=== PATIENT | male | born 1945 | race Caucasian/White ===

== ENCOUNTER 2018-07-24 06:12 | Day surgery (SDC) | payer MEDICARE, OTHER ==
[~2018-07-24] VITALS: Ht 172.7 cm; Wt 96.7 kg
[~2018-07-24 06:12] MED LIST: Aspirin EC81 MG PO; CENTRUM SILVER1 EAC4 PO; Vitamin D2000 UNIT PO
--- NOTE | 2018-07-24 09:09 | NUR ---
07/24/18 0909 Rip Dobbs LATE ENTRY RECEIVED REPORT FROM [facility] @ 5409 AND TOOK OVER PATIENT CARE. PATIENT VSS, TOLERATING PO FLUIDS WELL DISCHARGE INSTRUCTIONS REVIEWED WITH PATIENT, NO QUESTIONS AT THIS TIME. NURSE ASSISTED PATIENT WALK OUT TO HIS RIDE HOME.
== END 2018-07-24 08:50 | disposition home or self-care (01) ==
LOC: ORSCSDS 06:12
PROVIDERS: Surgery
PROC: 0DBM8ZX Excision of Descending Colon, Via Natural or Artificial Opening Endoscopic, Diagnostic (ICD-10-PCS; principal; 2018-07-24 08:00)
DX: Z12.11 Encounter for screening for malignant neoplasm of colon (principal); D12.4 Benign neoplasm of descending colon; K57.30 Diverticulosis of large intestine without perforation or abscess without bleeding; Z86.010 Personal history of colon polyps; Z79.82 Long term (current) use of aspirin; Z79.899 Other long term (current) drug therapy
CPT/HCPCS: 88305; J0330; J1980; J2405; J7120

== ENCOUNTER 2019-04-05 12:25 | Inpatient (IN) | payer MEDICARE, OTHER ==
[~2019-04-05] VITALS: Ht 172.7 cm; Wt 96.2 kg
[2019-04-05 12:39] LABS: Source, Urine Catheter
[2019-04-05 12:40] LABS: Calcium, Ionized (POC) 1.12 mmol/L (1.10-1.46); Chloride (POC) 107 mmol/L (98-108); Creatinine (POC) 1.2 mg/dL (0.8-1.3); Glucose (ISTAT POC) 119 mg/dL (70-99); Hemoglobin (POC) 14.6 g/dL (13.5-17.5); Potassium (POC) 3.9 mmol/L (3.5-5.5); Sodium (POC) 138 mmol/L (135-148); Total CO2 (POC) 18 mmol/L (21-32)
[2019-04-05 12:41] LABS: Bilirubin, Urine Neg (Neg); Blood, Urine 5+ (Neg); Glucose Qualitative, Urine Neg (Neg); Ketones, Urine 2+ (Neg); Leukocyte Esterase, Urine 2+ (Neg); Nitrite, Urine Neg (Neg); Protein, Urine 2+ (Neg); Specific Gravity, Urine 1.015 (1.003-1.022); Urobilinogen, Urine NORM (Normal)
[2019-04-05 12:44] LABS: BASOPHILS ABSOLUTE AUTO 0.02 K/mm3 (0.00-0.23); BASOPHILS PERCENT AUTO 0 % (0-2); EOSINOPHILS ABSOLUTE AUTO 0.01 K/mm3 (0.00-0.68); EOSINOPHILS PERCENT AUTO 0 % (0-6); Hematocrit 43.8 % (37.0-53.0); Hemoglobin 14.6 g/dL (13.5-17.5); IMMATURE GRAN ABSOLUTE AUTO 0.02 K/mm3 (0.00-0.10); IMMATURE GRAN PERCENT AUTO 0 % (0-1); LYMPHOCYTES ABSOLUTE AUTO 0.62 K/mm3 (0.84-5.20); LYMPHOCYTES PERCENT AUTO 8 % (21-46); MONOCYTES ABSOLUTE AUTO 0.12 K/mm3 (0.16-1.47); MONOCYTES PERCENT AUTO 2 % (4-13); Mean Corpuscular HGB 29.6 pg (26.0-34.0); Mean Corpuscular HGB Conc 33.3 g/dL (31.5-36.5); Mean Corpuscular Volume 89 fL (80-100); Mean Platelet Volume 10.2 fL (9.1-12.4); NEUTROPHILS ABSOLUTE AUTO 7.48 K/mm3 (1.96-9.15); NEUTROPHILS PERCENT AUTO 91 % (41-73); Platelet Count 147 K/mm3 (150-400); RDW Coefficient Variation 13.4 % (11.7-14.2); RDW Standard Deviation 43.8 fL (35.1-46.3); Red Blood Cell Count 4.94 M/mm3 (4.30-5.90); White Blood Cell Count 8.27 K/mm3 (4.00-11.30)
[2019-04-05 12:48] LABS: Appearance, Urine Hazy (Clear); Color, Urine Yellow (P-Yellow)
[2019-04-05 12:51] LABS: Red Blood Cells, Urine 25-50 /hpf (0-2)
[2019-04-05 12:53] LABS: Bacteria Few /hpf; Squamous Epithelial Cells Rare /hpf (Few)
[2019-04-05 12:54] LABS: Mucus Light (0-Heavy)
[2019-04-05 12:58] LABS: International Normalized Ratio 1.24; Prothrombin Time Results 12.9 Sec (9.7-11.5)
[2019-04-05 13:03] LABS: Alanine Aminotransfer (ALT/SGP 35 U/L (12-78); Albumin, Blood 3.6 g/dL (3.4-5.0); Albumin/Globulin Ratio 1.2 (0.8-1.8); Alk Phos 79 U/L (50-136); Anion Gap 11 mmol/L (6-16); Aspartate Aminotrans (AST/SGOT 23 U/L (12-37); Bilirubin, Total 1.2 mg/dL (0.1-1.0); Blood Urea Nitrogen 24 mg/dL (8-24); Bun/Creatinine Ratio 20.9 (12.0-20.0); CO2, Blood 20 mmol/L (21-32); Calcium, Blood 8.7 mg/dL (8.5-10.1); Chloride, Blood 108 mmol/L (98-108); Creatinine, Blood 1.15 mg/dL (0.60-1.20); Globulin, Blood 2.9 g/dL (2.2-4.0); Glomerular Filtration Rate >60 (60-); Glucose, Blood 115 mg/dL (70-99); Potassium, Blood 3.9 mmol/L (3.5-5.5); Sodium, Blood 139 mmol/L (136-145); Total Protein, Blood 6.5 g/dL (6.4-8.2)
[2019-04-05 13:45] LABS: U Amphetamine Screen Not Detected; U Barbituate Screen Not Detected; U Benzodiazapine Screen Not Detected; U Buprenorphine Screen Not Detected; U Cannabinoids Screen Not Detected; U Cocaine Screen Not Detected; U Methadone Screen Not Detected; U Methamphetamine Screen Not Detected; U Opiates Screen Not Detected; U Oxycodone Screen Not Detected; U Phencyclidine Screen Not Detected; U Propoxyphene Screen Not Detected
[2019-04-05 13:49] LABS: Acetaminophen, Random <2.0 ug/mL (10.0-30.0); Salicylate <1.7 mg/dL (2.8-20.0)
[2019-04-05 14:14] LABS: Influenza A Negative (NEGATIVE); Influenza B Negative (NEGATIVE)
[2019-04-05 15:21] LABS: Base Excess Venous -3.3 mmol/L; Bicarbonate Venous 22.7 mmol/L (24.0-30.0); PCO2 Venous 29.7 mmHg (38-42); PO2 Venous 102 mmHg (38-42); pH Blood Venous 7.45 (7.34-7.37)
--- NOTE | 2019-04-05 16:43 | NUR ---
PT ARRIVED AT APPROXIMATELY 1600. PT ALERT AND ORIENTED. ABLE TO TRANSFER HIMSELF WITHOUT ASSISTANCE. BP LOW, FLUIDS RUNNING. PT DENIES DIZZINESS. WILL CONTINUE TO MONITOR.
--- NOTE | 2019-04-05 17:18 | NUR ---
BP, LACTIC ACID DR. VILLALBA NOTIFIED OF CRITICAL HIGH LACTIC ACID OF 2.7. IT IS TRENDING DOWN FROM PREVIOUS RESULT. ORDER PLACED FOR FOLLOW-UP LACTIC IN [address] VILLALBA ALSO NOTIFIED OF SBP <100. PT IS ASYMTOMATIC, WILL CONTINUE TO MONITOR.
--- NOTE | 2019-04-05 18:02 | NUR ---
SHIFT SUMMARY PT HAS BEEN ALERT AND ORIENTED X4 SINCE ARRIVAL TO THE UNIT. VSS, EXCEPT FOR DECREASE IN BP; PT IS ASYMPTOMATIC. LACTIC ACID REMAINS CRITICAL BUT IS TRENDING DOWN. PT REPORTS HE FEELS BETTER SINCE ARRIVING AT THE HOSPITAL. PT IS A SBA WHEN OOB. WILL MONITOR UNTIL REPORT TO ONCOMING RN.
--- NOTE | 2019-04-06 02:52 | NUR ---
CRITICAL VALUE I WAS ALERTED BY LAB THAT THE PATIENT HAD POSITIVE BLOOD CULTURED INDICATING THAT HE HAD GRAM NEGATIVE BACILUS. TALKED TO THE CHARGE NURSE TO NOTIFY OF RESULTS. SHE SUGGESTED TO CALL PHARMACY TO SEE IF THE ANTIBIOTICS HE IS ALREADY ON IS SUFFICIENT COVERAGE FOR THE INFECTION. I CALLED THE PHARMACIST AND LET HIM KNOW, HE SAID THAT HE WOULD CALL BACK.
--- NOTE | 2019-04-06 04:18 | NUR ---
PHYSICIAN COMMUNICATION AFTER SPEAKING WITH THE PHARMACIST I CALLED THE [facility] [employer] OPERATOR PHYSICIAN TO LET HIM KNOW ABOUT THE PATIENT'S GRAM NEGATIVE BACILUS BLOOD CULTURE RESULT. I ALSO REPORTED THAT THE PATIENT HAS BEEN EXPERIENCING A FEVER OF 100.8 FOR WHICH TYLENOL ONLY LOWERED IT TO 100.4 AFTER AN HOUR. HE DID NOT WANT TO PURSUE ADDITIONAL PHARMACUTICAL TREATMENT AND SAID TO APPLY COOL WASCHLOTHS TO PATIENT'S FOREHEAD AND NECK.
[2019-04-06 04:54] LABS: BASOPHILS ABSOLUTE AUTO 0.03 K/mm3 (0.00-0.23); BASOPHILS PERCENT AUTO 0 % (0-2); EOSINOPHILS ABSOLUTE AUTO 0.01 K/mm3 (0.00-0.68); EOSINOPHILS PERCENT AUTO 0 % (0-6); Hematocrit 40.2 % (37.0-53.0); Hemoglobin 13.6 g/dL (13.5-17.5); IMMATURE GRAN ABSOLUTE AUTO 0.11 K/mm3 (0.00-0.10); IMMATURE GRAN PERCENT AUTO 1 % (0-1); LYMPHOCYTES ABSOLUTE AUTO 0.45 K/mm3 (0.84-5.20); LYMPHOCYTES PERCENT AUTO 3 % (21-46); MONOCYTES ABSOLUTE AUTO 0.72 K/mm3 (0.16-1.47); MONOCYTES PERCENT AUTO 5 % (4-13); Mean Corpuscular HGB Conc 33.8 g/dL (31.5-36.5); Mean Corpuscular Volume 89 fL (80-100); Mean Platelet Volume 10.9 fL (9.1-12.4); NEUTROPHILS ABSOLUTE AUTO 14.43 K/mm3 (1.96-9.15); NEUTROPHILS PERCENT AUTO 92 % (41-73); Platelet Count 134 K/mm3 (150-400); RDW Coefficient Variation 13.6 % (11.7-14.2); RDW Standard Deviation 43.9 fL (35.1-46.3); Red Blood Cell Count 4.53 M/mm3 (4.30-5.90); White Blood Cell Count 15.75 K/mm3 (4.00-11.30)
--- NOTE | 2019-04-06 04:55 | NUR ---
I RECEIVED A NOTIFICATION FROM THE LAB THAT A SECOND BLOOD CULTURE HAD COME BACK POSITIVE FOR GRAM NEGATIVE BACILUS. UPDATED CHARGE NURSE ABOUT THE RESULT.
[2019-04-06 05:15] LABS: Anion Gap 7 mmol/L (6-16); Blood Urea Nitrogen 19 mg/dL (8-24); Bun/Creatinine Ratio 19.4 (12.0-20.0); CO2, Blood 24 mmol/L (21-32); Calcium, Blood 8.2 mg/dL (8.5-10.1); Chloride, Blood 109 mmol/L (98-108); Creatinine, Blood 0.98 mg/dL (0.60-1.20); Glomerular Filtration Rate >60 (60-); Glucose, Blood 108 mg/dL (70-99); Potassium, Blood 3.8 mmol/L (3.5-5.5); Sodium, Blood 140 mmol/L (136-145)
--- NOTE | 2019-04-06 06:05 | NUR ---
SHIFT SUMMARY PATIENT WAS VERY PLEASANT OVERNIGHT. AT TIMES CONFUSED ABOUT THE CONCEPT OF HAVING A CATHETER IN PLACE. HE HAS HAD A LOW GRADE TEMPERATURE ALL NIGHT FOR WHICH PRN TYLENOL WAS ADMINISTERED. HE HAD BLOOD CULTURES COME BACK POSITIVE FOR GRAM NEGATIVE BACILUS FOR WHICH THE TRIAGE REGISTER NURSE PHYSICIAN AND PHARMACIST WERE NOTIFIED. THE CURRENT PLAN IS TO CONTINUE WITH HIS CURRENT COVERAGE OF ROCEPHIN BID. HIS TELE SHOWES HIM TO BE RUNNING AT SINUS RHYTHM. IV IN HIS LEFT ARM IS PATENT AND INFUSING WITH NORMAL SALINE AT 100 MLS AN HOUR. BED IN LOWEST POSITION WITH WHEELS LOCKED AND ALARM ON. CALL LIGHT WITHIN REACH. REPORT GIVEN TO ONCOMING RN.
--- NOTE | 2019-04-06 11:35 | NUR ---
Echocardiogram completed.
--- NOTE | 2019-04-06 15:23 | NUR ---
PT IS INCREASINGLY CONFUSED THE DAY GOES ON. HE HAS PULLED OUT 2 IVS. THE BED ALARM IS ON BUT HE CONTINUES TO GET UP WITHOUT CALLING FOR HELP AND DOES NOT UNDERSTAND INSTRUCTIONS TO SIT IN BED. PT ALSO HAS A FEVER OF 101.9. DR VILLALBA WAS NOTIFIED AND GAVE ORDERS TO GIVE HIS PRN TYLENOL FOR THE FEVER AND CONTINUE WITH BED ALARM AND TO PLACE A ERLINDA VEST FOR SAFETY IF NEEDED. CHARGE NURSE IS AWARE. PT IS CURRENTLY RESTING IN BED.
--- NOTE | 2019-04-06 16:44 | NUR ---
SHIFT SUMMARY: PT HAS BEEN ALERT AND ORIENTED TO HIMSELF, AND SITUATION AT TIMES. HE CAN REPORT HIS AND AT FIRST APPEARS TO BE ORIENTED X 4 BUT HE HAS BEEN INCREASINGLY CONFUSED THROUGHOUT THE DAY. HE NEEDS CONSTANT REMINDERS OF WHERE HE IS AND THAT HE NEEDS TO CALL FOR HELP WITH CALL LIGHT BEFORE GETTING UP OUT OF BED SO THAT HE DOESNT FALL. HE IS CONFUSED ABOUT WHAT HIS TEL MONITOR IS AND WHY IT IS ATTACHED TO HIM. THIS MORNING HE PULLED ON HIS CORDERO AND WHEN DR VILLALBA ROUNDED SHE GAVE ORDERS TO DC THE CORDERO, HE WAS ABLE TO VOID ON HIS OWN WITHIN THE HOUR AND IS AWARE OF WHEN HE NEEDS TO EMPTY HIS BLADDER. HE HAD A FEVER THIS AFTERNOON AND TYLENOL WAS GIVEN ORDERED AND IT WAS EFFECTIVE. HE CONTINUES ON IV FLUIDS AND ABO EVEN THOUGH IT HAS BEEN A CHALLENGE SINCE HE HAS PULLED OUT 2 IV LINES. HE NOW HAS A 3RD LINE AND IT IS COVERED AND HE WAS REMINDED OF HOW IMPORTANT THE LINE SO HE CAN RECEIVE HIS ABO. ERLINDA VEST REMAINS IN PLACE FOR SAFETY PER DR VILLALBA. PT HAS HIS CALL LIGHT IN REACH AND IS IN CLEAR SITE FOR FREQUENT MONITORING. THE BED ALARM IS ALSO ON.BED IS IN LOWEST POSITION AND LIGHTS WERE DIMMED SO PT CAN REST. HE IS CURRENTLY WATCHING TV.
--- NOTE | 2019-04-06 20:50 | NUR ---
CORDERO CATHETER PLACED TONIGHT. PATIENT GOT BACK FROM CT STILL COMPLAINING OF ALOT OF ABDOMINAL PAIN AND DISCOMFORT. BP WAS ELEVATED, AND ABDOMIN IS TENDER TO THE TOUCH. UNABLE TO VOID TODAY, HAD PYRIDINE OPERATOR BLADDER SCAN WHICH WAS 900CC OF RETENSION NOTED. CALLED MD GOT AN ORDER TO PLACE CATHETER FOR RETENSION AND OBSTRUCTION. ALSO WILL START ON FLOMAX PER SARAHI LICEA. NEW 14 F CATHETER WAS PLACED WITH NO DIFFICULTIES USING STERILE TECHNIQUE. IMMEDIATELY GOT URINE RETURN OF 1000ML CLEAR. PATIENT REPORTED IMMEDIATE RELEIVE OF DISCOMFORT AND PAIN OF THE ABDOMIN.
--- NOTE | 2019-04-06 20:58 | NUR ---
PATIENT RESTING IN ROOM, STATES HE IS DOING FINE. POSI VEST IN PLACE, RESTRAINT IS CHECKED, CIRCULATION CHECKED. DENIES ANY NEEDS AT THIS TIME. USED CALL LIGHT APPROPRIATLY, SCD'S PLACED ON AND PATIENT COVERED UP. ASSESSMENT COMPLETED, CALL LIGHT IN REACH.
--- NOTE | 2019-04-07 05:33 | NUR ---
SHIFT SUMMARY: 73 Y/O MALE ADMITTED FOR SEPSIS FROM UTI WITH AMS. PATIENT WAS PLACED IN POSI VEST YESTERDAY MID DAY. THROUGHOUT THE NIGHT THE PATIENT HAS BECOME MORE CLEAR AND ABLE TO USE THE CALL LIGHT APPROPRIATLY. HE WAS REMOVED OUT OF THE POSI AROUND 0320, AND PLACED ON BED ALARM. NO ATTEMPTS WERE MADE TO GET OUT OF BED AFTER RESTRAINTS WERE REMOVED. IV REMAINED PATENT AND INFUSED FLUIDS. MEDS WERE GIVEN PER EMAR. CALL LIGHT REMAINED IN REACH. WILL REPORT TO DAY SHIFT.
[2019-04-07 08:23] LABS: BASOPHILS ABSOLUTE AUTO 0.01 K/mm3 (0.00-0.23); BASOPHILS PERCENT AUTO 0 % (0-2); EOSINOPHILS PERCENT AUTO 0 % (0-6); Hematocrit 39.5 % (37.0-53.0); Hemoglobin 13.5 g/dL (13.5-17.5); IMMATURE GRAN ABSOLUTE AUTO 0.06 K/mm3 (0.00-0.10); IMMATURE GRAN PERCENT AUTO 1 % (0-1); LYMPHOCYTES ABSOLUTE AUTO 0.53 K/mm3 (0.84-5.20); LYMPHOCYTES PERCENT AUTO 5 % (21-46); MONOCYTES ABSOLUTE AUTO 0.84 K/mm3 (0.16-1.47); MONOCYTES PERCENT AUTO 8 % (4-13); Mean Corpuscular HGB 30.6 pg (26.0-34.0); Mean Corpuscular HGB Conc 34.2 g/dL (31.5-36.5); Mean Corpuscular Volume 90 fL (80-100); Mean Platelet Volume 10.7 fL (9.1-12.4); NEUTROPHILS ABSOLUTE AUTO 8.96 K/mm3 (1.96-9.15); NEUTROPHILS PERCENT AUTO 86 % (41-73); Platelet Count 133 K/mm3 (150-400); RDW Coefficient Variation 13.5 % (11.7-14.2); RDW Standard Deviation 44.5 fL (35.1-46.3); Red Blood Cell Count 4.41 M/mm3 (4.30-5.90)
[2019-04-07 08:38] LABS: Anion Gap 7 mmol/L (6-16); Blood Urea Nitrogen 15 mg/dL (8-24); Bun/Creatinine Ratio 15.5 (12.0-20.0); CO2, Blood 24 mmol/L (21-32); Calcium, Blood 7.7 mg/dL (8.5-10.1); Chloride, Blood 108 mmol/L (98-108); Creatinine, Blood 0.97 mg/dL (0.60-1.20); Glomerular Filtration Rate >60 (60-); Glucose, Blood 115 mg/dL (70-99); Potassium, Blood 3.4 mmol/L (3.5-5.5); Sodium, Blood 139 mmol/L (136-145)
--- NOTE | 2019-04-07 15:49 | NUR ---
SHIFT SUMMARY: PT HAS BEEN ALERT AND ORIENTED TO HIMSELF,,PLACE AND FAMILY BUT STILL CONFUSED. HIS IV REMAINS IN PLACE AND HE HAS NOT ATTEMPTED TO PULL IT OUT ALTHOUGH HE IS STILL CONFUSED ABOUT WHAT IT IS AND WHY ITS THERE. EDUCATION WAS COMPLETED WITH HIM AND HIS ABOUT THE IV ABO FOR HIS INFECTION AND THEY BOTH VERBALIZED AN UNDERSTANDING. TELE REMAINS ON AND PER SIGNAL WORKER IS AT [place]. PT WAS ASSISTED BY DIRECTOR DECISION SUPPORT TO TAKE A SHOWER TODAY AND HAS BEEN UP TO A RECLINER EVER SINCE. THE CHAIR ALARM IS ON AND HE HAS ALSO BEEN USING HIS CALL LIGHT FOR HELP. PT HAS A CT ORDERED FOR THIS JOHNATHAN. PT IS RESTING IN HIS CHAIR WITH HIS CALL LIGHT IN REACH WITH FREQUENT NURSE ROUNDING.
--- NOTE | 2019-04-07 20:20 | NUR ---
PATIENT ASSISTED TO THE BED, HE WAS SITTING UP IN HIS CHAIR MOST OF THE DAY. REPORTS ABDOMINAL PAIN AND DISCOMFORT THAT STARTED TODAY. HE HAD DRANK HIS CONTRAST ALREADY AND IS AWAITING FOR IMAGING TO SHOW UP. ABDOMIN IS DISTENDED AND TENDER TO THE TOUCH. IMAGING CALLED WHILE IN THE ROOM THEY ARE ON THEIR WAY TO GET HIM. IV SL AT THIS TIME. LUNG SOUNDS ARE CLEAR, REPORTS NO CONSTIPATION. STATES HE HAS NOT BEEN ABLE TO VOID ALL DAY EXCEPT LITTLE AMOUNTS HERE AND THERE. UNABLE TO DO BLADDER SCAN CT SHOWED UP AND GOT THE PATIENT WILL ASSESS WHEN HE GETS BACK TO THE ROOM.
--- NOTE | 2019-04-07 22:59 | NUR ---
PATIENT RESTING COMFORTABLY IN THE ROOM WITH NO SIGNS OF DISTRESS. AWAKEN EASILY WITH VERBAL STIMULI. ADMINISTERED FLOMAX PER ORDERS. CATHETER PATENT AND DRAINING. STATES NO DISCOMFORT OF THE ABDOMIN, THAT HE FEELS ALOT BETTER. EDUCATED ON BLADDER TRAINING AND FLOMAX HOW IT WILL HELP. CALL LIGHT IN REACH.
[2019-04-08 04:33] LABS: BASOPHILS ABSOLUTE AUTO 0.02 K/mm3 (0.00-0.23); BASOPHILS PERCENT AUTO 0 % (0-2); EOSINOPHILS ABSOLUTE AUTO 0.03 K/mm3 (0.00-0.68); EOSINOPHILS PERCENT AUTO 0 % (0-6); Hematocrit 38.4 % (37.0-53.0); IMMATURE GRAN ABSOLUTE AUTO 0.05 K/mm3 (0.00-0.10); IMMATURE GRAN PERCENT AUTO 1 % (0-1); LYMPHOCYTES ABSOLUTE AUTO 0.64 K/mm3 (0.84-5.20); LYMPHOCYTES PERCENT AUTO 6 % (21-46); MONOCYTES ABSOLUTE AUTO 0.89 K/mm3 (0.16-1.47); MONOCYTES PERCENT AUTO 8 % (4-13); Mean Corpuscular HGB 29.5 pg (26.0-34.0); Mean Corpuscular HGB Conc 33.9 g/dL (31.5-36.5); Mean Corpuscular Volume 87 fL (80-100); Mean Platelet Volume 10.4 fL (9.1-12.4); NEUTROPHILS PERCENT AUTO 85 % (41-73); Platelet Count 152 K/mm3 (150-400); RDW Coefficient Variation 13.7 % (11.7-14.2); RDW Standard Deviation 43.8 fL (35.1-46.3); Red Blood Cell Count 4.41 M/mm3 (4.30-5.90); White Blood Cell Count 10.73 K/mm3 (4.00-11.30)
[2019-04-08 04:48] LABS: Anion Gap 7 mmol/L (6-16); Blood Urea Nitrogen 12 mg/dL (8-24); Bun/Creatinine Ratio 12.8 (12.0-20.0); CO2, Blood 24 mmol/L (21-32); Calcium, Blood 7.7 mg/dL (8.5-10.1); Chloride, Blood 109 mmol/L (98-108); Creatinine, Blood 0.94 mg/dL (0.60-1.20); Glomerular Filtration Rate >60 (60-); Glucose, Blood 113 mg/dL (70-99); Potassium, Blood 3.5 mmol/L (3.5-5.5); Sodium, Blood 140 mmol/L (136-145)
--- NOTE | 2019-04-08 05:13 | NUR ---
SHIFT SUMMARY: 73 Y/O MALE ADMITTED FOR SEPSIS R/T UTI. CT SCAN COMPLETED LAST NIGHT. PT REPORTED INCREASE IN ABDOMINAL PAIN WHEN HE RETURNED AT START OF SHIFT. NOTED UNABLE TO VOID, BLADDER SCAN SHOWED 900ML. MD CALLED AND ORDER TO PLACE CATHTER OBTAINED. PLACED 14F CORDERO WITH 1000ML RETURN. THIS RELEIVED ABDOMINAL PAIN AND DISCOMFORT. FLOMAX WAS STARTED. IV INFUSED WITH NO PROBLEMS ALL NIGHT. PATIENT REMAINED APPROPRIATE AND USING CALL LIGHT. NO OTHE CHANGES TO NOTE. VS STABLE. WILL REPORT OFF TO DAY SHIFT.
--- NOTE | 2019-04-08 19:19 | NUR ---
END OF SHIFT SUMMARY: PATIENT DENIED PAIN THROUGHOUT THE SHIFT. PATIENT IS ALERT AND ORIENTED, BUT REQUIRES REMINDERS. PATIENT WILL ALSO RELAY THE SAME INFORMATION TO STAFF MULTIPLE TIMES. PATIENT CALLED APPORPRIATELY AND FOLLOWED DIRECTIONS. PATIENT STEADY ON FEET. DENIED DIZZINESS AT REST OR WITH MOVEMENT. PATIENT HR UP TO 120S AT ONE POINT PER PCU TECH. PATIENT REPORTED HE HAD BEEN UP TO THE BATHROOM. AFTER REST, PATIENT HR RETURNED TO HIGH 90S. PATIENT REPORTS FEELING BETTER. URINE OUTPUT REMAINS CLEAR YELLOW. PROVIDED PATIENT AND HIS WITH EDUCATION REGARDING CURRENT DIAGNOSES AND NEW MEDICATIONS. PATIENT CONTINUES TO REPORT A DIMINISHED APPETITE AND DENIED NAUSEA OR ABD DISCOMFORT.
--- NOTE | 2019-04-08 21:27 | NUR ---
PATIENT FINALLY WOKE UP, HE WAS SLEEPING WHEN ARRIVED ON TO SHIFT. PATIENT ALERT AND ORIENTED TO SELF WITH MILD CONFUSION. ABLE TO STATE PLACE BUT FOREGETS TIME AND SITUATION. NEEDS REMINDERS. ASSESSMENT COMPLETED SEE CHART. MEDICATIONS GIVEN, IV ANTIBOTIC HUNG. CATHETER PATENT AND DRAINING. CALL LIGHT IN REACH WILL CONTINUE TO MONITOR.
--- NOTE | 2019-04-09 06:13 | NUR ---
SHIFT SUMMARY: 73 Y/O MALE ADMITTED FOR SEPSIS OF UTI. VS HAVE BEEN STABLE. PATIENT HAD A FEW PERIODS OF CONFUSION. HE CONTINUED TO TRY AND CALL HIS BUT SHE WAS NOT ANSWERING, THINKING IT WAS MORNING TIME AND IT WAS MIDNIGHT. HE DID NOT NOTICE THE TIME. EASILY REORIENTED. CATHETER REMAINED PATENT, DRAINING CLEAR YELLOW URINE. IV ANTIBOTIC INFUSED THEN HE WAS SL. NO ACUTE CHANGES OCCURRED THIS SHIFT. WILL REPORT TO DAY SHIFT.
[2019-04-09] MEDS ORDERED: Florastor250 MG PO (11:16)
[2019-04-09] MEDS ORDERED: ACET325 PO (11:16)
[2019-04-09] MEDS ORDERED: CIPR500 PO (11:17)
[2019-04-09] MEDS ORDERED: TAMS.4ER PO (11:17)
--- NOTE | 2019-04-09 13:10 | NUR ---
PT DISCHARGED TO HOME WITH SPOUSE. PT ALERT AND ORIENTED THROUGHOUT THIS SHIFT. PT INDEPENDENT IN ROOM. PT AND SPOUSE EDUCATED ON CORDERO CATHETER CARE AND DRAINAGE. UROLOGY WILL CALL PATIENT FOR FOLLOW-UP APPOINTMENT. PT AND SPOUSE PROVIDED WITH DISCHARGE EDUCATION AND DISCHARGE MEDICATION EDUCATION. PT AND SPOUSE VERBALIZED UNDERSTANDING OF EDUCATION. IV'S REMOVED PRIOR TO PT DISCHARGE. PT BELONGINGS WITH PATIENT UPON DISCHARGE. PT TO VEHICLE VIA WHEELCHAIR.
== END 2019-04-09 13:06 | disposition home or self-care (01) | DRG 871 ==
LOC: ER 12:25 → MEDS 14:45
PROVIDERS: Emergency Medicine; ADMIT Internal Medicine
DX: A41.50 Gram-negative sepsis, unspecified (principal); G93.41 Metabolic encephalopathy; N30.00 Acute cystitis without hematuria; N10 Acute pyelonephritis; N40.1 Benign prostatic hyperplasia with lower urinary tract symptoms; R65.20 Severe sepsis without septic shock; R33.8 Other retention of urine; Z79.82 Long term (current) use of aspirin
CPT/HCPCS: 36415; 51702; 70450; 71046; 74177; 80047; 80048; 80053; 81001; 82140; 82550; 82803; 83605; 84443; 85014; 85025; 85610; 85651; 85730; 86140; 87040; 87077; 87086; 87186; 87804; 93005; 93010; 93306; 96361-59; 96365-59; 99285-25; A9270; G0103; G0480; J0696; J1650; J1956; J7030; J7120; Q9967

== ENCOUNTER → 2020-01-11 | Outpatient (CLI) | payer MEDICARE, OTHER ==
[~2020-01-11] MED LIST changes: +ACET325 PO; +CIPR500 PO; +Florastor250 MG PO; +TAMS.4ER PO
== END ==
LOC: LAB SHORT 14:21 → LAB 14:21
DX: L82.1 Other seborrheic keratosis (principal)
CPT/HCPCS: 88305

== ENCOUNTER 2021-11-16 09:53 | Emergency (ER) | payer MEDICARE, OTHER ==
[~2021-11-16] VITALS: Ht 172.7 cm; Wt 97.5 kg
[2021-11-16] MEDS ORDERED: VITAMIN B-12500 MCG SL (10:23)
[2021-11-16 10:54] LABS: BASOPHILS ABSOLUTE AUTO 0.03 K/mm3 (0.00-0.23); BASOPHILS PERCENT AUTO 0 % (0-2); EOSINOPHILS ABSOLUTE AUTO 0.07 K/mm3 (0.00-0.68); EOSINOPHILS PERCENT AUTO 1 % (0-6); Hematocrit 48.4 % (37.0-53.0); Hemoglobin 16.5 g/dL (13.5-17.5); IMMATURE GRAN ABSOLUTE AUTO 0.02 K/mm3 (0.00-0.10); IMMATURE GRAN PERCENT AUTO 0 % (0-1); LYMPHOCYTES ABSOLUTE AUTO 1.37 K/mm3 (0.84-5.20); LYMPHOCYTES PERCENT AUTO 16 % (21-46); MONOCYTES ABSOLUTE AUTO 0.46 K/mm3 (0.16-1.47); MONOCYTES PERCENT AUTO 6 % (4-13); Mean Corpuscular HGB 29.8 pg (26.0-34.0); Mean Corpuscular HGB Conc 34.1 g/dL (31.5-36.5); Mean Corpuscular Volume 88 fL (80-100); Mean Platelet Volume 9.8 fL (9.1-12.4); NEUTROPHILS ABSOLUTE AUTO 6.39 K/mm3 (1.96-9.15); NEUTROPHILS PERCENT AUTO 77 % (41-73); Platelet Count 222 K/mm3 (150-400); Red Blood Cell Count 5.53 M/mm3 (4.30-5.90); White Blood Cell Count 8.34 K/mm3 (4.00-11.30)
[2021-11-16 11:17] LABS: Albumin/Globulin Ratio 1.4 (0.8-1.8); Bilirubin, Total 0.9 mg/dL (0.1-1.0); Bun/Creatinine Ratio 24.2 (12.0-20.0); Calcium, Blood 9.5 mg/dL (8.5-10.1); Creatinine, Blood 0.87 mg/dL (0.60-1.20); Globulin, Blood 2.9 g/dL (2.2-4.0); Potassium, Blood 3.8 mmol/L (3.5-5.5); Total Protein, Blood 6.9 g/dL (6.4-8.2)
[2021-11-16 11:38] LABS: Source, Urine Clean Catch
[2021-11-16 11:42] LABS: Appearance, Urine Clear (Clear); Bilirubin, Urine Neg (Neg); Blood, Urine 1+ (Neg); Color, Urine Yellow (P-Yellow); Glucose Qualitative, Urine Neg (Neg); Ketones, Urine Neg (Neg); Leukocyte Esterase, Urine Neg (Neg); Nitrite, Urine Neg (Neg); Protein, Urine Neg (Neg); Urobilinogen, Urine NORM (Normal)
[2021-11-16 11:55] LABS: Bacteria Many /hpf; Red Blood Cells, Urine 0-2 /hpf (0-2); Squamous Epithelial Cells Rare /hpf (Few); White Blood Cells, Urine Not Seen /hpf (0-5)
== END 2021-11-16 12:39 | disposition home or self-care (01) ==
LOC: ER 09:53
PROVIDERS: Emergency Medicine
DX: R41.3 Other amnesia (principal); Z79.899 Other long term (current) drug therapy
CPT/HCPCS: 36415; 70450; 71045; 80053; 81001; 85025

== ENCOUNTER 2023-07-11 20:20 | Emergency (ER) | payer MEDICARE, OTHER ==
[~2023-07-11] VITALS: Ht 165.1 cm; Wt 72.6 kg
[~2023-07-11 20:20] MED LIST changes: +VITAMIN B-12500 MCG SL
[2023-07-11 20:23] VITALS: BP 180/93
[2023-07-11 20:48] LABS: BASOPHILS ABSOLUTE AUTO 0.06 K/mm3 (0.00-0.23); BASOPHILS PERCENT AUTO 1 % (0-2); EOSINOPHILS ABSOLUTE AUTO 0.22 K/mm3 (0.00-0.68); EOSINOPHILS PERCENT AUTO 2 % (0-6); Hematocrit 47.9 % (37.0-53.0); Hemoglobin 16.1 g/dL (13.5-17.5); IMMATURE GRAN ABSOLUTE AUTO 0.03 K/mm3 (0.00-0.10); IMMATURE GRAN PERCENT AUTO 0 % (0-1); LYMPHOCYTES ABSOLUTE AUTO 2.58 K/mm3 (0.84-5.20); LYMPHOCYTES PERCENT AUTO 27 % (21-46); MONOCYTES PERCENT AUTO 5 % (4-13); Mean Corpuscular HGB 29.6 pg (26.0-34.0); Mean Corpuscular HGB Conc 33.6 g/dL (31.5-36.5); Mean Corpuscular Volume 88 fL (80-100); Mean Platelet Volume 9.5 fL (9.1-12.4); NEUTROPHILS ABSOLUTE AUTO 6.03 K/mm3 (1.96-9.15); NEUTROPHILS PERCENT AUTO 64 % (41-73); Platelet Count 240 K/mm3 (150-400); RDW Coefficient Variation 13.6 % (11.7-14.2); RDW Standard Deviation 43.9 fL (35.1-46.3); Red Blood Cell Count 5.44 M/mm3 (4.30-5.90); White Blood Cell Count 9.42 K/mm3 (4.00-11.30)
[2023-07-11 21:16] LABS: Albumin, Blood 4.3 g/dL (3.4-5.0); Albumin/Globulin Ratio 1.5 (0.8-1.8); Bilirubin, Total 0.5 mg/dL (0.1-1.0); Bun/Creatinine Ratio 26.1 (12.0-20.0); Calcium, Blood 9.3 mg/dL (8.5-10.1); Creatinine, Blood 0.92 mg/dL (0.60-1.20); Globulin, Blood 2.9 g/dL (2.2-4.0); Magnesium, Blood 2.4 mg/dL (1.6-2.4); Potassium, Blood 3.6 mmol/L (3.5-5.5); Total Protein, Blood 7.2 g/dL (6.4-8.2)
[2023-07-11 21:35] LABS: Source, Urine Clean Catch
[2023-07-11 21:37] LABS: Bilirubin, Urine Neg (Neg); Blood, Urine 5+ (Neg); Glucose Qualitative, Urine Neg (Neg); Ketones, Urine 1+ (Neg); Leukocyte Esterase, Urine 1+ (Neg); Nitrite, Urine Neg (Neg); Protein, Urine 2+ (Neg); Specific Gravity, Urine 1.015 (1.003-1.022); Urobilinogen, Urine 1+ (Normal); pH, Urine 6.5 (5.0-8.0)
[2023-07-11 22:19] LABS: Appearance, Urine Cloudy (Clear); Color, Urine Brown (P-Yellow)
[2023-07-11 22:21] LABS: Bacteria Few /hpf; Red Blood Cells, Urine TNTC /hpf (0-2); Squamous Epithelial Cells Not Seen /hpf (Few); White Blood Cells, Urine 0-2 /hpf (0-5)
[2023-07-11] MEDS ORDERED: Trimethoprim/Sulfamethoxazole DS Tab PO ONE (22:35)
[2023-07-11] MEDS ORDERED: Bactrim Ds Tab1 EACH PO (22:36)
== END 2023-07-11 22:47 | disposition home or self-care (01) ==
LOC: ER 20:20
PROVIDERS: Physician Assistant
DX: N39.0 Urinary tract infection, site not specified (principal); F03.90 Unspecified dementia, unspecified severity, without behavioral disturbance, psychotic disturbance, mood disturbance, and anxiety; Z79.899 Other long term (current) drug therapy
CPT/HCPCS: 76770; 80053; 81001; 83735; 85025; 87086; 99284-25; A9270

== ENCOUNTER 2023-07-12 13:37 | Emergency (ER) | payer MEDICARE, OTHER ==
[~2023-07-12] VITALS: Ht 167.6 cm; Wt 90.7 kg
[~2023-07-12 13:37] MED LIST changes: +Bactrim Ds Tab1 EACH PO
[2023-07-12 14:04] VITALS: BP 167/82
== END 2023-07-12 14:07 | disposition home or self-care (01) ==
LOC: ER 13:37
DX: N39.0 Urinary tract infection, site not specified (principal)
CPT/HCPCS: 99282